=== PATIENT | male | born 1990 | race Caucasian/White ===

== ENCOUNTER 2021-12-05 18:14 | Emergency (ER) | payer OTHER ==
[~2021-12-05] VITALS: Ht 162.6 cm; Wt 124.7 kg
[2021-12-05] MEDS ORDERED: Ritalin10 MG PO (19:48)
[2021-12-05] MEDS ORDERED: Prinivil10 MG PO (19:49)
[2021-12-05] MEDS ORDERED: METPHE20 PO (19:49)
[2021-12-05] MEDS ORDERED: TIZA4 PO (19:49)
== END 2021-12-05 19:58 | disposition home or self-care (01) ==
LOC: ER 18:14
DX: S43.401A Unspecified sprain of right shoulder joint, initial encounter (principal); F17.210 Nicotine dependence, cigarettes, uncomplicated; X50.0XXA Overexertion from strenuous movement or load, initial encounter; Z79.899 Other long term (current) drug therapy
CPT/HCPCS: 73030